=== PATIENT | male | born 1980 | race Caucasian/White ===

== ENCOUNTER 2019-12-29 12:22 | Observation (INO) | payer OTHER, SELFPAY ==
[2019-12-29] VITALS (20 sets, daily range): BP systolic 107–146; BP diastolic 49–107; PULSE 52–104; RESP 7–24; TEMP 36.4–38.2; O2SAT 96–100; BMI 23.7
--- NOTE | 2019-12-29 12:28 | DI.RAD.S_ITS ---
PROCEDURE: XR FOOT RT MIN 3V INDICATIONS: Boat propeller shaft hit foot TECHNIQUE: 3 views of the foot were acquired. COMPARISON: None. FINDINGS: Bones: There is a moderately displaced, comminuted fracture seen of the distal shaft of the 5th metatarsal. No intra-articular involvement can be seen. No additional fractures are detected. Soft tissues: Associated soft tissue injury can be seen. IMPRESSION: Comminuted, moderately displaced fracture of the distal shaft of the 5th metatarsal. Dictated by: Marcelino Amador M.D. on 12/29/2019 at 12:04 Approved by: Marcelino Amador M.D. on 12/29/2019 at 12:05
--- NOTE | 2019-12-29 12:47 | ED_ITS ---
HPI - Wound/Laceration <WHITNEY Griffin - Last Filed: 12/29/19 18:31> General Chief Complaint: Wound/Laceration Stated Complaint: Laceration on foot Time Seen by Provider: 12/29/19 12:28 Source: patient and EMS Mode of arrival: EMS Limitations: no limitations History of Present Illness HPI narrative: The patient is a 39-year-old male nonsmoker who denies pertinent medical history presents with a chief complaint of a laceration to his right foot. He was working in a propeller room, when he slipped and cut the bottom of his right foot on a bolt from the propeller shaft. He does not know when his last tetanus was. He states he can feel his whole foot, though the lateral aspect by his 5th toe feels ?funny. He arrives by EMS with a dressing of rags on his foot. He denies any pertinent medical history, though has had an Achilles repair and knee surgery. Does not take any medications every day last intake 12:00 which was dried mangoes. The patient states that he was in the propeller room, not in water. He was wearing shoes and this occurred through his shoes. Related Data Allergies Allergy/AdvReac Type Severity Reaction Status Date / Time No Known Drug Allergies Allergy Verified 12/29/19 12:29 Review of Systems <WHITNEY Griffin - Last Filed: 12/29/19 18:31> Review of Systems Narrative: GENERAL: Denies chills, fatigue, malaise, fever, sweats. HEENT: Denies sinus pain, ear pain, sore throat, difficulty swallowing, dizziness. RESPIRATORY: Denies dyspnea, cough, wheezing, hemoptysis, sputum. CARDIOVASCULAR: Denies chest pain, palpitations, orthopnea, edema, GASTROINTESTINAL: Denies nausea, vomiting, abdominal pain, diarrhea, constipation, melena. : Denies dysuria, frequency, incontinence, hematuria, urinary retention. MUSCULOSKELETAL: See HPI SKIN: See HPI NEUROLOGIC: Denies weakness, headache, numbness, change in speech, confusion, seizures, incoordination. PSYCHIATRIC: No concerning psychosocial issues. 12 point review of systems is negative except for those stated above Patient History <WHITNEY Griffin - Last Filed: 12/29/19 18:31> Surgical History (Updated 12/29/19 @ 18:23 by JAI Griffin) H/O Achilles tendon repair Social History household members: spouse Smoking Status: Never smoker alcohol intake: current Smoking Status: Unknown if ever smoked alcohol intake frequency: holidays/special occasions only Substance Use Type: marijuana Exam <JAI Griffin - Last Filed: 12/29/19 18:31> Narrative Exam Narrative: GENERAL: This is a well-nourished, well-developed patient, in appears slightly anxious HEAD: Atraumatic. Normocephalic. No temporal or scalp tenderness. EYES: Pupils equal round and reactive. Extraocular motions intact. No scleral icterus. No injection or drainage. ENT: Nose without bleeding, purulent drainage or septal hematoma. Wearing a mask Airway patent. NECK: Trachea midline. No JVD or lymphadenopathy. Supple, nontender, no meningeal signs. CARDIOVASCULAR: Regular rate and rhythm RESPIRATORY: Clear to auscultation. Breath sounds equal bilaterally. No wheezes, rales, or rhonchi. No cough. No increased respiratory effort. No accessory muscle use GASTROINTESTINAL: Abdomen soft, non-tender, nondistended. No hepato- splenomegaly, or palpable masses. No guarding. EXTREMITIES: Irregular jagged 8 cm laceration that is linear on plantar aspect of right foot. Positive right pedal pulses. Wiggling right toes. Laceration oozing blood, approximately 2 cm deep. Sensation intact all toes, though slightly reduced over 5th toe. Able to flex and extend ankle. Capillary refill all toes left foot less than 2 seconds. BACK: Nontender without deformity or crepitance. No flank tenderness. NEURO: AOx3. SKIN: See extremity exam Initial Vital Signs Initial Vital Signs: Vital Signs Temperature 98.4 F 12/29/19 12:25 Pulse Rate 86 12/29/19 12:25 Respiratory Rate 16 12/29/19 12:25 Blood Pressure 146/88 H 12/29/19 12:25 Pulse Oximetry 98 12/29/19 12:25 <Lisa Espinoza DO - Last Filed: 12/30/19 07:23> Initial Vital Signs Initial Vital Signs: Vital Signs Temperature 98.4 F 12/29/19 12:25 Pulse Rate 86 11/19/20 12:25 Respiratory Rate 16 12/29/19 12:25 Blood Pressure 146/88 H 12/29/19 12:25 Pulse Oximetry 98 12/29/19 12:25 Scores [facility] Last Filed: 12/29/19 18:31> GCS Seaview coma scale eye opening: Spontaneous Seaview coma scale verbal response: Orientated Seaview coma scale motor response: Obey commands Rose coma scale total score: 15 Course <WHITNEY Griffin - Last Filed: 12/29/19 18:31> Orders Ordered: Acetaminophen (Acetaminophen 325 Mg Tablet) 975 mg PO TID [facility] Last Admin: 12/30/19 05:18 Dose: 975 mg Documented by: Admin: 12/29/19 21:04 Dose: 975 mg Documented by: ARTIE Aspirin (Aspirin Ec 81 Mg Tablet) 81 mg PO BID [facility] Docusate Sodium (Docusate 100 Mg Capsule) 100 mg PO BID [facility] Last Admin: 12/29/19 21:04 Dose: 100 mg Documented by: ARTIE Hydromorphone HCl (Hydromorphone 0.5 Mg Inj) 0.2 mg IV Q1H PRN PRN Reason: Pain, Severe (7-10) Lactated Ringer's (Lactated Ringers) 1,000 mls @ 125 mls/hr IV CONT [facility] Last Infusion: 12/30/19 05:14 Dose: 0 mls/hr Documented by: Admin: 12/29/19 21:04 Dose: 125 mls/hr Documented by: ARTIE Cefazolin Sodium/Dextrose (Ancef) 2 gm in 100 mls @ 200 mls/hr IV Q8H [facility] Stop: 12/30/19 10:29 Last Infusion: 12/30/19 02:29 Dose: 0 mls/hr Documented by: Admin: 12/30/19 01:59 Dose: 200 mls/hr Documented by: NATY Sodium Chloride (Normal Saline 0.9%) 250 mls @ 21 mls/hr IV Q24H PRN PRN Reason: Flush Naloxone HCl (Naloxone 0.4 Mg/Ml Vial) 0.2 mg IV Q2MIN PRN PRN Reason: Opiate Reversal Ondansetron HCl (Ondansetron 4 Mg Odt) 4 mg PO Q4HR PRN PRN Reason: Nausea And Vomiting Ondansetron HCl (Ondansetron 4 Mg/2 Ml Inj) 4 mg IV Q4HR PRN PRN Reason: Nausea And Vomiting Oxycodone HCl (Oxycodone Ir 5 Mg Tablet) 5 mg PO Q3HR PRN PRN Reason: Pain, Moderate (4-6) Oxycodone HCl (Oxycodone Ir 10 Mg Tablet) 10 mg PO Q3HR PRN PRN Reason: Pain, Severe (7-10) Discontinued Medications Acetaminophen (Acetaminophen 325 Mg Tablet) 650 mg PO PACUNOW PRN PRN Reason: Pain, Mild (1-3) Bupivacaine HCl/Epinephrine Bitart (Bupivacaine 0.25% W/ Epi (Pf) 10 Ml Vial) 20 ml INJ NOW ONE Stop: 12/29/19 18:38 Last Admin: 12/29/19 18:38 Dose: 30 ml Documented by: CONCA Diphtheria/Tetanus/Acell Pertussis (Tet,Diph,Pertuss(Acell),Vac/Pf 0.5 Ml Syringe) 0.5 ml IM .ONCE ONE Stop: 12/29/19 12:29 Last Admin: 12/29/19 12:49 Dose: 0.5 ml Documented by: ARABELLA Fentanyl (Fentanyl 100 Mcg/2 Ml Inj) 0 mcg IV Q5M PRN PRN Reason: Pain, Moderate (4-6) Hydromorphone HCl (Hydromorphone 0.5 Mg Inj) 0.5 mg IV NOW ONE Stop: 12/29/19 13:20 Last Admin: 12/29/19 13:26 Dose: 0.5 mg Documented by: ARABELLA Hydromorphone HCl (Hydromorphone 0.5 Mg Inj) 0.5 mg IV NOW ONE Stop: 12/29/19 14:42 Last Admin: 12/29/19 14:49 Dose: 0.5 mg Documented by: ANA M Hydromorphone HCl (Hydromorphone 2 Mg Inj) 0 mg IV Q5MIN PRN PRN Reason: Pain, Mild (1-3) Potassium Chloride 40 meq/ (Sodium Chloride) 520 mls @ 130 mls/hr IV NOW ONE Stop: 12/29/19 18:17 Last Admin: 12/29/19 14:38 Dose: 130 mls/hr Documented by: ANA M Cosigned by: KBROTEM Cefazolin Sodium 2 gm/ Sodium (Chloride) 100 mls @ 200 mls/hr IV Q8H [facility] Stop: 12/29/19 22:31 Last Admin: 12/29/19 21:15 Dose: Not Given Documented by: ARTIE Cefazolin Sodium/Dextrose (Ancef) 2 gm in 100 mls @ 200 mls/hr IV Q8H [facility] Stop: 12/29/19 23:14 Last Infusion: 12/29/19 16:08 Dose: 0 mls/hr Documented by: ANA M Admin: 12/29/19 14:38 Dose: 200 mls/hr Documented by: ANA M Sodium Chloride (Normal Saline 0.9%) 1,000 mls @ 150 mls/hr IV CONT [facility] Last Admin: 12/29/19 16:17 Dose: 150 mls/hr Documented by: ANA M Lactated Ringer's (Lactated Ringers) 1,000 mls @ 42 mls/hr IV CONT [facility] Last Admin: 12/29/19 17:24 Dose: 42 mls/hr Documented by: SUJATA Cefazolin Sodium/Dextrose (Ancef) 2 gm in 100 mls @ 200 mls/hr IV NOW ONE Stop: 12/29/19 18:15 Last Infusion: 12/29/19 18:15 Dose: 0 mls/hr Documented by: Admin: 12/29/19 17:58 Dose: 200 mls/hr Documented by: SUSIE Morphine Sulfate (Morphine 4 Mg/Ml Inj) 4 mg IV NOW ONE Stop: 12/29/19 12:33 Last Admin: 12/29/19 12:50 Dose: 4 mg Documented by: ARABELLA Ondansetron HCl (Ondansetron 4 Mg/2 Ml Inj) 4 mg IV NOW PRN PRN Reason: Nausea And Vomiting Oxycodone HCl (Oxycodone Ir 5 Mg Tablet) 5 mg PO PACUNOW PRN PRN Reason: Mild or moderate pain Sodium Chloride (Sodium Chloride 0.9% 100 Ml) 150 ml IV NOW ONE Stop: 12/29/19 16:13 Last Admin: 12/29/19 16:16 Dose: Not Given Documented by: ANA M Vital Signs Vital signs: Vital Signs - 8 hr 12/29/19 12:25 12/29/19 13:37 12/29/19 14:00 Temperature 98.4 F Pulse Rate 86 63 52 L Respiratory Rate 16 23 21 Blood Pressure 146/88 H Pulse Oximetry 98 97 98 12/29/19 14:01 12/29/19 14:30 12/29/19 15:00 Temperature Pulse Rate 65 68 Respiratory Rate 15 24 Blood Pressure 107/53 L 113/62 110/55 L Pulse Oximetry 98 96 12/29/19 15:30 Temperature Pulse Rate 62 Respiratory Rate 22 Blood Pressure 118/65 Pulse Oximetry 99 <Lisa Espinoza, DO - Last Filed: 12/30/19 07:23> Orders Ordered: Acetaminophen (Acetaminophen 325 Mg Tablet) 975 mg PO TID [facility] Last Admin: 12/30/19 05:18 Dose: 975 mg Documented by: Admin: 12/29/19 21:04 Dose: 975 mg Documented by: ARTIE Aspirin (Aspirin Ec 81 Mg Tablet) 81 mg PO BID [facility] Docusate Sodium (Docusate 100 Mg Capsule) 100 mg PO BID [facility] Last Admin: 12/29/19 21:04 Dose: 100 mg Documented by: ARTIE Hydromorphone HCl (Hydromorphone 0.5 Mg Inj) 0.2 mg IV Q1H PRN PRN Reason: Pain, Severe (7-10) Lactated Ringer's (Lactated Ringers) 1,000 mls @ 125 mls/hr IV CONT [facility] Last Infusion: 12/30/19 05:14 Dose: 0 mls/hr Documented by: Admin: 12/29/19 21:04 Dose: 125 mls/hr Documented by: ARTIE Cefazolin Sodium/Dextrose (Ancef) 2 gm in 100 mls @ 200 mls/hr IV Q8H [facility] Stop: 12/30/19 10:29 Last Infusion: 12/30/19 02:29 Dose: 0 mls/hr Documented by: Admin: 12/30/19 01:59 Dose: 200 mls/hr Documented by: NATY Sodium Chloride (Normal Saline 0.9%) 250 mls @ 21 mls/hr IV Q24H PRN PRN Reason: Flush Naloxone HCl (Naloxone 0.4 Mg/Ml Vial) 0.2 mg IV Q2MIN PRN PRN Reason: Opiate Reversal Ondansetron HCl (Ondansetron 4 Mg Odt) 4 mg PO Q4HR PRN PRN Reason: Nausea And Vomiting Ondansetron HCl (Ondansetron 4 Mg/2 Ml Inj) 4 mg IV Q4HR PRN PRN Reason: Nausea And Vomiting Oxycodone HCl (Oxycodone Ir 5 Mg Tablet) 5 mg PO Q3HR PRN PRN Reason: Pain, Moderate (4-6) Oxycodone HCl (Oxycodone Ir 10 Mg Tablet) 10 mg PO Q3HR PRN PRN Reason: Pain, Severe (7-10) Discontinued Medications Acetaminophen (Acetaminophen 325 Mg Tablet) 650 mg PO PACUNOW PRN PRN Reason: Pain, Mild (1-3) Bupivacaine HCl/Epinephrine Bitart (Bupivacaine 0.25% W/ Epi (Pf) 10 Ml Vial) 20 ml INJ NOW ONE Stop: 12/29/19 18:38 Last Admin: 12/29/19 18:38 Dose: 30 ml Documented by: CONCA Diphtheria/Tetanus/Acell Pertussis (Tet,Diph,Pertuss(Acell),Vac/Pf 0.5 Ml Syringe) 0.5 ml IM .ONCE ONE Stop: 12/29/19 12:29 Last Admin: 12/29/19 12:49 Dose: 0.5 ml Documented by: ARABELLA Fentanyl (Fentanyl 100 Mcg/2 Ml Inj) 0 mcg IV Q5M PRN PRN Reason: Pain, Moderate (4-6) Hydromorphone HCl (Hydromorphone 0.5 Mg Inj) 0.5 mg IV NOW ONE Stop: 12/29/19 13:20 Last Admin: 12/29/19 13:26 Dose: 0.5 mg Documented by: ARABELLA Hydromorphone HCl (Hydromorphone 0.5 Mg Inj) 0.5 mg IV NOW ONE Stop: 12/29/19 14:42 Last Admin: 12/29/19 14:49 Dose: 0.5 mg Documented by: ANA M Hydromorphone HCl (Hydromorphone 2 Mg Inj) 0 mg IV Q5MIN PRN PRN Reason: Pain, Mild (1-3) Potassium Chloride 40 meq/ (Sodium Chloride) 520 mls @ 130 mls/hr IV NOW ONE Stop: 12/29/19 18:17 Last Admin: 12/29/19 14:38 Dose: 130 mls/hr Documented by: ANA M Cosigned by: UBALDO Cefazolin Sodium 2 gm/ Sodium (Chloride) 100 mls @ 200 mls/hr IV Q8H [facility] Stop: 12/29/19 22:31 Last Admin: 12/29/19 21:15 Dose: Not Given Documented by: ARTIE Cefazolin Sodium/Dextrose (Ancef) 2 gm in 100 mls @ 200 mls/hr IV Q8H [facility] Stop: 12/29/19 23:14 Last Infusion: 12/29/19 16:08 Dose: 0 mls/hr Documented by: ANA M Admin: 12/29/19 14:38 Dose: 200 mls/hr Documented by: ANA M Sodium Chloride (Normal Saline 0.9%) 1,000 mls @ 150 mls/hr IV CONT [facility] Last Admin: 12/29/19 16:17 Dose: 150 mls/hr Documented by: ANA M Lactated Ringer's (Lactated Ringers) 1,000 mls @ 42 mls/hr IV CONT [facility] Last Admin: 12/29/19 17:24 Dose: 42 mls/hr Documented by: SUJATA Cefazolin Sodium/Dextrose (Ancef) 2 gm in 100 mls @ 200 mls/hr IV NOW ONE Stop: 12/29/19 18:15 Last Infusion: 12/29/19 18:15 Dose: 0 mls/hr Documented by: Admin: 12/29/19 17:58 Dose: 200 mls/hr Documented by: SUSIE Morphine Sulfate (Morphine 4 Mg/Ml Inj) 4 mg IV NOW ONE Stop: 12/29/19 12:33 Last Admin: 12/29/19 12:50 Dose: 4 mg Documented by: ARABELLA Ondansetron HCl (Ondansetron 4 Mg/2 Ml Inj) 4 mg IV NOW PRN PRN Reason: Nausea And Vomiting Oxycodone HCl (Oxycodone Ir 5 Mg Tablet) 5 mg PO PACUNOW PRN PRN Reason: Mild or moderate pain Sodium Chloride (Sodium Chloride 0.9% 100 Ml) 150 ml IV NOW ONE Stop: 12/29/19 16:13 Last Admin: 12/29/19 16:16 Dose: Not Given Documented by: ANA M Vital Signs Vital signs: Vital Signs - 8 hr 12/29/19 12:25 12/29/19 13:37 12/29/19 14:00 Temperature 98.4 F Pulse Rate 86 63 52 L Respiratory Rate 16 23 21 Blood Pressure 146/88 H Pulse Oximetry 98 97 98 12/29/19 14:01 12/29/19 14:30 12/29/19 15:00 Temperature Pulse Rate 65 68 Respiratory Rate 15 24 Blood Pressure 107/53 L 113/62 110/55 L Pulse Oximetry 98 96 12/29/19 15:30 Temperature Pulse Rate 62 Respiratory Rate 22 Blood Pressure 118/65 Pulse Oximetry 99 MDM - Wound/Laceration <GUILLERMO Griffin- - Last Filed: 12/29/19 18:31> Lab Data Attestation: I reviewed the patient's lab results. Result diagrams: 12/29/19 12:43 12/29/19 12:43 Labs: Lab Results 12/29/19 12/29/19 12/29/19 Range/Units 12:43 12:43 12:43 WBC 6.6 (4.5-11.0) X10^3/uL RBC 5.15 (4.5-5.9) X10^6/uL Hgb 14.6 (13.5-17.5) g/dL Hct 43.5 (41-53) % MCV 84.5 (80-100) fL MCH 28.4 (26-34) PG MCHC 33.6 (30-36) % RDW 12.5 (11.6-14.8) % Plt Count 183 (150-400) X10^3/uL Neut % (Auto) 58.9 (50-75) % Lymph % (Auto) 31.1 (25-40) % [place] % (Auto) 7.0 (3-14) % Eos % (Auto) 2.4 (2-4) % Baso % (Auto) 0.6 (0-2) % Neut # (Auto) 3900 (9258-7675) /uL Lymph # (Auto) 2100 (3271-1879) /uL [place] # (Auto) 500 (0-900) /uL Eos # (Auto) 200 (0-450) /uL Baso # (Auto) 0 (0-100) /uL Sodium 138 (137-145) mmol/L Potassium 2.9 L (3.4-5.1) mmol/L Chloride 100 (98-107) mmol/L Carbon Dioxide 30 (22-32) mmol/L BUN 18 (9-20) mg/dL Creatinine 0.72 (0.66-1.25) mg/dL Estimated GFR > 60.0 (>60) mL/min BUN/Creatinine Ratio 25.0 H (6-22) Glucose 124 H (70-100) mg/dL Calcium 9.2 (8.4-10.2) mg/dL Total Bilirubin 0.6 (0.2-1.3) mg/dL AST 28 (17-59) IU/L ALT 22 (<50) IU/L Alkaline Phosphatase 89 (38-126) U/L Total Protein 7.6 (6.3-8.2) g/dL Albumin 4.7 (3.5-5.0) g/dL Globulin 2.9 (1.7-4.1) g/dL Albumin/Globulin Ratio 1.6 (1.0-2.8) COVID-19 PCR Negative (Negative) Imaging Data Extremity x-ray #1: Radiologist's Impression: [address] [place] [id number] ReportSigned Patient: Saritha Noriega#: [id number]: 1980Acct:[id number]/Sex: 39 / MDate of Service: 12/29/19Loc: EDAccession Number: [id number] Procedure: XR foot RT min 3V Ordering Provider: Lala Funes- PROCEDURE: XR FOOT RT MIN 3V INDICATIONS: Boat propeller shaft hit foot TECHNIQUE: 3 views of the foot were acquired. COMPARISON: None. FINDINGS: Bones: There is a moderately displaced, comminuted fracture seen of the distal shaft of the 5th metatarsal. No intra-articular involvement can be seen. No additional fractures are detected. Soft tissues: Associated soft tissue injury can be seen. IMPRESSION: Comminuted, moderately displaced fracture of the distal shaft of the 5th metatarsal. Dictated by: Marcelino Amador M.D. on 12/29/2019 at 12:04 Approved by: Marcelino Amador M.D. on 12/29/2019 at 12:05 [facility] Narrative Medical decision making narrative: The patient is a 39-year-old male who presents with a chief complaint of a propeller staffed injury to the base of his right foot. His tetanus was updated. X-rays were taken he was found to have an open fracture of his 5th metatarsal. He is neurovascular intact throughout stay in the ER, though slight the decreased sensation on lateral aspect. Given his complicated laceration and open fracture, I spoke with Dr. Borrero from [facility] who elected to take the patient to the operating room. Last oral intake was at noon, this patient went to surgery at 6:00 p.m.. He was given Ancef in the emergency department as this injury was not caused and water. He was noted to be hypokalemic, He was given Potassium rider in the emergency department. Coronavirus is negative. Patient received Dilaudid in the ER for pain and remain NPO. Patient went to operating room for surgery at approximately 6:00 p.m.. <Lisa Espinoza DO - Last Filed: 12/30/19 07:23> Lab Data Labs: Lab Results 12/29/19 12/29/19 12/29/19 Range/Units 12:43 12:43 12:43 WBC 6.6 (4.5-11.0) X10^3/uL RBC 5.15 (4.5-5.9) X10^6/uL Hgb 14.6 (13.5-17.5) g/dL Hct 43.5 (41-53) % MCV 84.5 (80-100) fL MCH 28.4 (26-34) PG MCHC 33.6 (30-36) % RDW 12.5 (11.6-14.8) % Plt Count 183 (150-400) X10^3/uL Neut % (Auto) 58.9 (50-75) % Lymph % (Auto) 31.1 (25-40) % [place] % (Auto) 7.0 (3-14) % Eos % (Auto) 2.4 (2-4) % Baso % (Auto) 0.6 (0-2) % Neut # (Auto) 3900 (3958-7422) /uL Lymph # (Auto) 2100 (5005-9576) /uL [place] # (Auto) 500 (0-900) /uL Eos # (Auto) 200 (0-450) /uL Baso # (Auto) 0 (0-100) /uL Sodium 138 (137-145) mmol/L Potassium 2.9 L (3.4-5.1) mmol/L Chloride 100 (98-107) mmol/L Carbon Dioxide 30 (22-32) mmol/L BUN 18 (9-20) mg/dL Creatinine 0.72 (0.66-1.25) mg/dL Estimated GFR > 60.0 (>60) mL/min BUN/Creatinine Ratio 25.0 H (6-22) Glucose 124 H (70-100) mg/dL Calcium 9.2 (8.4-10.2) mg/dL Total Bilirubin 0.6 (0.2-1.3) mg/dL AST 28 (17-59) IU/L ALT 22 (<50) IU/L Alkaline Phosphatase 89 (38-126) U/L Total Protein 7.6 (6.3-8.2) g/dL Albumin 4.7 (3.5-5.0) g/dL Globulin 2.9 (1.7-4.1) g/dL Albumin/Globulin Ratio 1.6 (1.0-2.8) COVID-19 PCR Negative (Negative) Discharge Plan Departure Patient Disposition: Admitted as Observation Clinical Impression: Open fracture, Laceration Admit Date/Time: 12/29/19 15:46 Admit Provider: Kassidy James <Lisa Espinoza DO - Last Filed: 12/30/19 07:23> Cosign ED Attending Zabrina Attestation: I was immediately available in the department for consultation. Documentation has been reviewed. I agree with assessment and plan.
[2019-12-29] MEDS: TET,DIPH,PERTUSS(ACELL),VAC/PF 0.5 ML SYRINGE IM (12:49)
[2019-12-29] MEDS: MORPHINE 4 MG/ML INJ IV (12:50)
--- NOTE | 2019-12-29 13:02 | PC.NURSE ---
patient has been NPO since 1200. He is not DM and not beta blocked
[2019-12-29 13:05] LABS: Alanine Aminotransferase 22 IU/L (<50); Albumin 4.7 g/dL (3.5-5.0); Albumin Globulin Ratio 1.6 (1.0-2.8); Alkaline Phosphatase 89 U/L (38-126); Aspartate Aminotransferase 28 IU/L (17-59); Bilirubin Total 0.6 mg/dL (0.2-1.3); Blood Urea Nitrogen 18 mg/dL (9-20); COVID19 -Nasal RAPID Negative (Negative); Calcium 9.2 mg/dL (8.4-10.2); Carbon Dioxide 30 mmol/L (22-32); Chloride 100 mmol/L (98-107); Estimated Glomerular Filt Rate > 60.0 mL/min (>60); Globulin 2.9 g/dL (1.7-4.1); Glucose 124 mg/dL (70-100); HEMOLYSIS 25 (0-50); Potassium 2.9 mmol/L (3.4-5.1); Sodium 138 mmol/L (137-145); Total Protein 7.6 g/dL (6.3-8.2)
[2019-12-29 13:08] LABS: Add Manual Diff / Slide Review NO; Basophils Absolute Auto 0 /uL (0-100); Basophils Percent Auto 0.6 % (0-2); Eosinophils Absolute Auto 200 /uL (0-450); Eosinophils Percent Auto 2.4 % (2-4); Hematocrit 43.5 % (41-53); Hemoglobin 14.6 g/dL (13.5-17.5); Lymphocytes Absolute Auto 2100 /uL (1100-4500); Lymphocytes Percent Auto 31.1 % (25-40); Mean Corpuscular HGB Conc 33.6 % (30-36); Mean Corpuscular Hemoglobin 28.4 PG (26-34); Mean Corpuscular Volume 84.5 fL (80-100); Monocytes Absolute Auto 500 /uL (0-900); Neutrophils Absolute Auto 3900 /uL (1500-7000); Neutrophils Percent Auto 58.9 % (50-75); Platelet Count 183 X10^3/uL (150-400); Red Blood Cell Count 5.15 X10^6/uL (4.5-5.9); Red Cell Distribution Width 12.5 % (11.6-14.8); White Blood Cell Count 6.6 X10^3/uL (4.5-11.0)
[2019-12-29] MEDS: HYDROMORPHONE 0.5 MG INJ IV ×2 (13:26→14:49)
[2019-12-29] MEDS: POTASSIUM CHLORIDE 40 MEQ in SODIUM CHLORIDE 0.9% 500 ML 130 ML IV (14:38)
[2019-12-29] MEDS: CEFAZOLIN 2 GM/100 ML FROZ.PIGGY IV ×2 (14:38→17:58)
[2019-12-29] MEDS: SODIUM CHLORIDE 0.9% 1,000 ML 150 ML IV (16:17)
--- NOTE | 2019-12-29 17:10 | PM.HP.1 ---
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 It went through his shoe and through shoe off and lacerated the plantar lateral surface of his right foot. He had immediate bleeding and pain at the time. He presented [facility]. Tetanus shot was updated. He was found to have a approximately 8 cm plantar laceration and a 5th metatarsal fracture. He has a history of a right Achilles tendon repair on the same foot over 10 years ago. Denies any medication allergies. No daily medicines. He received Ancef in the emergency room. Patient History Family & Social History Safety & Behavioral: Feels Safe in Current Yes Environment Been Physically Hurt or No Threatened By a Person Tobacco & Substance use: Smoking Status Unknown if ever smoked alcohol intake frequency holiday/special occasion Substance Use Type marijuana Meds Home Medications and Allergies Allergies Allergy/AdvReac Type Severity Reaction Status Date / Time No Known Drug Allergies Allergy Verified 12/29/19 12:29 Review of Systems Review of Systems Narrative: Review systems otherwise negative, 10 point review of systems. Does have a history of upper gastric endoscopy twice for surveillance. Father has history of esophageal cancer. Patient states both of his scopes have been negative ROS: Yes All systems reviewed with the patient and are negative except as otherwise documented Constitutional Comments: Denies fevers chills nausea vomiting Respiratory Comments: Denies cough denies shortness of breath denies wheezing Musculoskeletal Comments: Right foot pain for HPI Exam Vital Signs (past 8 hours): - 12/29/19 12:25 12/29/19 13:37 12/29/19 14:00 Temperature 98.4 F Pulse Rate 86 63 52 L Respiratory Rate 16 23 21 Blood Pressure 146/88 H Pulse Oximetry 98 97 98 12/29/19 14:01 12/29/19 14:30 12/29/19 15:00 Temperature Pulse Rate 65 68 Respiratory Rate 15 24 Blood Pressure 107/53 L 113/62 110/55 L Pulse Oximetry 98 96 12/29/19 15:30 12/29/19 16:00 12/29/19 16:30 Temperature Pulse Rate 62 61 87 Respiratory Rate 22 12 20 Blood Pressure 118/65 118/68 146/75 H Pulse Oximetry 99 98 100 12/29/19 16:56 Temperature 100.8 F H Pulse Rate 84 Respiratory Rate 22 Blood Pressure 143/77 H Pulse Oximetry 99 Oxygen Delivery Method Room Air Narrative Exam Narrative: Alert oriented male no acute distress appears stated age HEENT normocephalic atraumatic Respiratory exam unlabored on room air, lungs clear to auscultation bilaterally CV exam regular rate and rhythm Musculoskeletal exam: Full range of motion upper extremities. Right lower extremity has a dressing around the forefoot and midfoot. Is able to wiggle toes. Sensation moderately dismissed laterally over the 5th toe otherwise intact. Demonstrates dorsiflexion plantar flexion of the ankle. Achilles intact. Calf is soft. Brisk capillary refill Objective Labs Result Diagrams: 12/29/19 12:43 12/29/19 12:43 Labs: Laboratory Results - last 24 hr 12/29/19 12/29/19 12/29/19 12:43 12:43 12:43 WBC 6.6 RBC 5.15 Hgb 14.6 Hct 43.5 MCV 84.5 MCH 28.4 MCHC 33.6 RDW 12.5 Plt Count 183 Neut % (Auto) 58.9 Lymph % (Auto) 31.1 Jenkins % (Auto) 7.0 Eos % (Auto) 2.4 Baso % (Auto) 0.6 Neut # (Auto) 3900 Lymph # (Auto) 2100 Jenkins # (Auto) 500 Eos # (Auto) 200 Baso # (Auto) 0 Sodium 138 Potassium 2.9 L Chloride 100 Carbon Dioxide 30 BUN 18 Creatinine 0.72 Estimated GFR > 60.0 BUN/Creatinine Ratio 25.0 H Glucose 124 H Calcium 9.2 Total Bilirubin 0.6 AST 28 ALT 22 Alkaline Phosphatase 89 Total Protein 7.6 Albumin 4.7 Globulin 2.9 Albumin/Globulin Ratio 1.6 COVID-19 PCR Negative Assessment & Plan Assessment and plan (1) Open fracture: Problem details: Patient has an open fracture of his right 5th metatarsal neck. At this was sustained an industrial injury. The patient received tetanus in the ER. He received antibiotics in the ER. He has been indicated for formal operative irrigation and debridement of his open fracture and possible fixation. The risks and benefits of the procedure have been discussed with the patient even opportunity to ask questions. The risks of surgery include but are not limited to infection, malunion, nonunion, persistence of pain, damage to nerves and blood vessels, posttraumatic arthritis, DVT, PE, cardiopulmonary complications and . The patient expressed a thorough understanding of the risks and benefits of surgery and has elected to proceed. Consent was signed. He is indicated for observation admission to the hospital to receive postoperative antibiotics for his open fracture after surgical fixation. Will be discharged home in the morning after receiving antibiotics. Follow-up in 2 weeks for suture removal. If placed K-wire will stay in approximately 6 weeks. He will be heel weight-bearing in the postoperative shoe. Above for the 1st 2 weeks will minimize weight-bearing and utilize crutches to aid with plantar wound healing. Status: Acute (2) Laceration: Problem details: 8 cm complex laceration, deep plantar foot communicating with open 5th metatarsal fracture. Requiring operative debridement exploration and fixation of structures as indicated. Discussed with depth and location of laceration may have injured flexor tendons will evaluate these intraoperatively. Patient understands and agrees with the plan Status: Acute Quality VTE Deep Vein Thrombosis/Pulmonary Embolism Present on Admission: No
[2019-12-29] MEDS: LACTATED RINGERS 1,000 ML 42 ML IV (17:24)
--- NOTE | 2019-12-29 17:27 | P.OP_ITS ---
Operative Date/Time/Diagnoses Date of procedure: 12/29/19 Pre-op diagnosis: 1. Open fracture right 5th metatarsal T14.8xxa 2. Complex laceration plantar foot right, 8 cm Post-op diagnosis: same Procedure & Clinicians Procedure: 1. Open reduction internal fixation open right 5th metatarsal fracture CPT 38874 2. Irrigation debridement site of an open fracture cpt 60842 3. 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 During this his shoe was ripped off and he sustained a open 5th metatarsal fracture as well as a large plantar laceration approximately 8 cm. He was i ndicated for formal operative debridement and exploration of his deep laceration and open reduction internal fixation of the open fracture. Received antibiotic in the ER and a tetanus update. The risks and benefits of the procedure have been discussed with the patient even opportunity to ask questions. The risks of surgery include but are not limited to infection, malunion, nonunion, persistenc e of pain, damage to nerves and blood vessels, posttraumatic arthritis, DVT, PE, cardiopulmonary complications and . The patient expressed a thorough understanding of the risks and benefits of surgery and has elected to proceed. Consent was signed in the office today. Surgeon: Ksasidy James Click Yes if Unassisted: Yes Anesthesia Type: General and Local Operative Notes Findings: Complex deep plantar foot laceration measuring 10 cm and open c omminuted 5th metatarsal neck fracture with approximately 4 mm of displacement and shortening Closure Type: primary Specimen(s): none sent Prosthetic devices, grafts, tissues, transplants, or devices: 062 K wire x2 Estimated Blood Loss (mL): 5 Blood products transfused: none Tourniquet time (min): 40 Procedure in detail: Patient was seen in the preoperative room the site of surgery was marked informed consent confirmed. The patient was brought to the operating by the anesthesia team positioned supine on the OR table. Bony prominences well padded. SCD on the contralateral lower extremity. An ipsilateral thigh bump was placed. Well-padded thigh tourniquet was placed. General anesthesia was administered. Patient's right lower extremities prepped and draped in the standard sterile fashion. Formal time-out procedure was performed confirming the patient's side and site of surgery and administration of appropriate preoperative antibiotic. This was an open wound was prepped with Betadine. Esmarch was used for exsanguination and the tourniquet was elevated to 250 mm of mercury and stayed there for approximately 40 minutes. Attention was 1st turned to the plantar laceration. This was a 10 cm plantar laceration full thickness deep down to bone. Wound was opened and explored. Distally the flexor tendon for the small toe was palpated and congruency. The wound was thoroughly irrigated with 3 L of saline using cysto tubing. And the edges freshened and cleaned of all devitalized skin subcutaneous tissue muscle and fascia. The open fracture was also irrigated and the fracture bone cleansed and debrided. Following this gloves were changed. And attention was turned to the comminuted oblique metatarsal neck fracture. This was reduced with manual manipulation. And a 062 K-wire was placed across. Note the metatarsal neck fracture was quite unstable and did tend to shorten and flex. Therefore of this was repositioned and secured with a 2x062 K-wires for increased stability. Alignment was appropriate on AP and lateral imaging the wires were then cut and bent. The laceration was closed in a layered fashion with 2-0 PDS and 2-0 nylon and 3-0 nylon in the skin. 30 cc of 0.25% Marcaine with epinephrine were infiltrated for local anesthetic. The tourniquet was released. Hemostasis was achieved. A well-padded dressing was placed with Xeroform gauze Webril and ABD pad and Miguel wrap. Patient was placed into a postoperative shoe. Drapes removed. He was woken from anesthesia and taken to the postoperative unit in good condition. All counts were correct. Complications: none Post-operative Condition: stable Disposition: observation Plan for aftercare: Postop admission forIV antibiotics for open fracture. Once finished with standard postoperative doses plan for discharge home tomorrow morning after physical therapy with crutch training. Follow-up in 2 weeks in clinic. K-wire will stay for 6 weeks. He will weight-bearing postop shoe with crutch assistance.
[2019-12-29] MEDS: BUPIVACAINE 0.25% W/ EPI (PF) 10 ML VIAL 20 ML INJ (18:38)
[2019-12-29] MEDS: LACTATED RINGERS 1,000 ML 125 ML IV (21:04)
[2019-12-29] MEDS: ACETAMINOPHEN 325 MG TABLET 975 MG PO (21:04)
[2019-12-29] MEDS: DOCUSATE 100 MG CAPSULE PO (21:04)
[2019-12-30 00:15] VITALS: BP 127/64; PULSE 78; RESP 16; TEMP 37.1; O2SAT 97
[2019-12-30] MEDS: CEFAZOLIN 2 GM/100 ML FROZ.PIGGY IV ×2 (01:59→10:32)
[2019-12-30 04:48] VITALS: BP 114/66; PULSE 65; RESP 16; TEMP 36.4; O2SAT 98
[2019-12-30] MEDS: ACETAMINOPHEN 325 MG TABLET 975 MG PO (05:18)
--- NOTE | 2019-12-30 06:01 | PC.NURSE ---
Pt is A and O x 4, VSS. Pt rates R foot pain 4/10 and was given 975 mg APAP at 0530. He tolerated his ABOs and IVF well and voiding qs clear yellow. LS clear and HRR.
[2019-12-30 07:00] VITALS: BP 115/71; PULSE 76; RESP 15; TEMP 37.1; O2SAT 97
--- NOTE | 2019-12-30 07:58 | P.DS_ITS ---
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 It went through his shoe and through shoe off and lacerated the plantar lateral surface of his right foot. He had immediate bleeding and pain at the time. He presented [facility]. Tetanus shot was updated. He was found to have a approximately 8 cm plantar laceration and a 5th metatarsal fracture. He has a history of a right Achilles tendon repair on the same foot over 10 years ago. Denies any medication allergies. No daily medicines. He received Ancef in the emergency room. Was also found Have a low potassium in the ER and received infusion for electrolyte correction. Discharge Providers Provider Date of admission: 12/29/19 15:46 Discharge Date: 12/30/19 Primary care physician: Cy Alejandro MD Consults: 12/29/19 20:21 Consult to Physical Therapy Evaluate & Treat Comment: crutches and crutch training heel weightbearing ok Physician Instructions: Evaluate and Treat Consult to Respiratory Therapy Evaluate & Treat Comment: Physician Instructions: Evaluate and treat Discharge provider: Kassidy James MD Summary Hospital Course Discharge Diagnosis: Right open 5th metatarsal fracture, 10 cm plantar foot traumatic laceration, complex Hypokalemia Hospital Course: Patient was evaluated in the emergency room for his traumatic laceration plantar foot approximately 10 cm and open 5th metatarsal fracture. Received antibiotics the ER and tetanus update. Was taken to the operating room for formal operative debridement and ORIF of his open 5th metatarsal fracture. He was admitted to the floor for a standard treatment open fracture with postoperative IV antibiotics and pain control. Same was controlled overnight on oral medications. Patient was tolerating a p.o. diet. He was appropriate for discharge home following completion of his 2nd back IV antibiotics in the morning and crutch training with physical therapy. Status at Discharge Cognitive/behavioral status at discharge: oriented Functional status at discharge: uses cane/walker (Crutches) Overall status at discharge: patient is progressing back to baseline Time Spent with Patient Time spent: Less than 30 minutes Time spent discussing smoking cessation with patient: 3 to 10 minutes Exam Vital Signs (past 8 hours): - 12/30/19 00:15 12/30/19 04:48 Temperature 98.8 F 97.5 F L Pulse Rate 78 65 Respiratory Rate 16 16 Blood Pressure 127/64 114/66 Pulse Oximetry 97 98 Oxygen Delivery Method Room Air Oxygen Flow Rate 0 Narrative Exam Narrative: Alert and oriented no acute distress Normocephalic atraumatic Lungs clear to auscultation bilaterally. No use of accessory muscles Regular rate and rhythm Right lower extremity with the postoperative shoe and dressings in place. Pins intact with caps in place. Toes pink and well perfused. Able to wiggle toes. Demonstrates active dorsiflexion plantar flexion of the foot. Calf is soft. Grossly neurovascularly intact. Objective Labs Result Diagrams: 12/29/19 12:43 12/29/19 12:43 Labs: Laboratory Results - last 24 hr 12/29/19 12/29/19 12/29/19 12:43 12:43 12:43 WBC 6.6 RBC 5.15 Hgb 14.6 Hct 43.5 MCV 84.5 MCH 28.4 MCHC 33.6 RDW 12.5 Plt Count 183 Neut % (Auto) 58.9 Lymph % (Auto) 31.1 Panola % (Auto) 7.0 Eos % (Auto) 2.4 Baso % (Auto) 0.6 Neut # (Auto) 3900 Lymph # (Auto) 2100 [place] # (Auto) 500 Eos # (Auto) 200 Baso # (Auto) 0 Sodium 138 Potassium 2.9 L Chloride 100 Carbon Dioxide 30 BUN 18 Creatinine 0.72 Estimated GFR > 60.0 BUN/Creatinine Ratio 25.0 H Glucose 124 H Calcium 9.2 Total Bilirubin 0.6 AST 28 ALT 22 Alkaline Phosphatase 89 Total Protein 7.6 Albumin 4.7 Globulin 2.9 Albumin/Globulin Ratio 1.6 COVID-19 PCR Negative Discharge Assessment & Plan Assessment and Plan Assessment: 1. Open fracture right 5th metatarsal status postoperative I and D 23 hours of IV antibiotics and ORIF 2. 10 cm complex plantar laceration over open fracture status post formal operative debridement, IV antibiotics closure. 3. Hypokalemia status post electrolyte correction administration Plan of Treatment: 1. Heel down weight-bearing in postop shoe with use of crutches. Will rest and elevate most the next 2 weeks until wound healing on his plantar foot. K-wires will stay in place x6 weeks. Follow-up in 2 weeks for wound check. Left 5 days Keflex at discharge and Catawba for pain control. Aspirin 81 mg b.i.d. DVT prophylaxis. Once of an ambulatory may discontinue this. 2. Hypokalemia status post correction with electrolyte administration. Discharge Plan Discharge Plan Patient Disposition: Home Provider Discharge Comment: After therapy provided crutches and crutch training and after 10 a.m. dose Ancef Discharge orders & Medications Prescriptions: New hydrocodone-acetaminophen [Catawba] 5-325 mg tablet 1 tab PO Q4-6H PRN (Reason: pain) Qty: 30 RF: 0 cephalexin [Keflex] 500 mg capsule 500 mg PO QID Qty: 20 RF: 0 Follow up/Referrals: Kassidy James MD [Physician] - Cy Alejandro MD [Primary Care Provider] - Diet/Activity/Treatments Diet: Diet as Tolerated Activity: Heel weight-bearing in postoperative shoe and crutches. Elevate as needed Skin/Wound/Dressing Care Report to your healthcare provider any signs of infection, such as:: chills, fever, night sweats, increased pain, unusual drainage and unusual redness Dressing: Keep dressing clean dry and intact. May overwrap or change if saturated otherwise leave intact until 1st postoperative appointment. May take postop shoe off in bed but be careful to protect pinned Other wound treatment: At-Home Instructions - Dr. James Surgery: Laceration and open reduction internal fixation open right 5th metatarsal fracture Cast/Splint/Dressing Care Instructions 1) Keep cast/dressing clean and dry. 2) May bathe - but cast/dressing must remain dry. 3) Should the cast become wet, you need to come into emergency department or call your physician's clinic immediately for cast removal and replacement. Moisture can cause skin breakdown and lead to infection if left untreated. 4) Do not stick any sharp object down the cast to itch, as this can cause scrapes/cuts/punctures which can lead to infection. 6) Observe for increasing pain in the extremity with the cast, finger/toe-tips turning blue/purple, or numbness and tingling in your toes/fingers. Should any of these symptoms arise, you need to be seen immediately for evaluation of swelling and increasing compartment pressures within your affected extremity. 7) Keep your affected extremity elevated - Toes Above your Nose? - This is winters in the first two weeks after surgery to minimize swelling. 8) You may ice your extremity, being careful to prevent melting ice from saturating into the splint/cast. Activity No driving while on narcotic pain medication. Do not get your dressing/cast/splint wet! You must remain non-weight bearing/or heel and down in the postop shoe on your operative extremity. Use crutches or a walker for ambulation. No driving until you are otherwise instructed by your physician. This will be addressed at your first follow-up appointment. Discharge Pain Medications You will be given a prescription for pain medication. You should start taking this the same day after your surgery. Wean off as tolerated. Do not wait to take the pain medication until the pain is severe, as it will be difficult to catch up once this occurs. The pain medication usually reaches its full effect ~1 hour after ingesting. If you have been sent home on Colace, this medication should be taken until you are off all narcotic (i.e. Vicodin, Percocet, Oxycodone, etc) pain medications, to prevent constipation. You may also obtain this or another stool softener over the counter to prevent or alleviate constipation. Percocet or Vicodin have Tylenol in their ingredient lists. You must be careful not to exceed 3,000mg (3 grams) of Tylenol, from all sources, within a single 24-hr period. This means that you may not take more than 10 pills within a 24- hr period. Do NOT take Regular or Extra Strength Tylenol when taking your Percocet or Vicodin medications. -IF you have been given a Toradol/ketorolac prescription, this is a very strong anti-inflammatory. Do not take gwvw-ffi-icowfcp anti-inflammatories (ibuprofen, Aleve, Advil, Motrin) while taking the Toradol/ketorolac. Once you are finished with this prescription, then you can resume msca-sat-juhlgvd anti- inflammatories. You can still take your narcotic pain medication and Tylenol while taking the Toradol/ketorolac. -Some common side effects of the narcotic pain medications (Percocet, Oxycodone, Vicodin, etc.) include nausea and itching. Benadryl is a great over the counter medication that helps calm your stomach, decreases your anxiety levels, and minimizes the itching. You can easily purchase this at your local pharmacy as an qqyy-xfj-vytkerp medication. Please abide by the instructions as printed on the bottle. If your nausea persists, make sure to take small amounts of crackers or other menagerie caretaker foods. Follow-Up/Emergency Contacts Please call for an appointment in either [place] or [place], if one has not been scheduled. Follow up 2 weeks after surgery. [phone] Contact the office if you have any of the following: ? Painful swelling or numbness ? Unrelenting pain ? Fever (over 101?- it is normal to have a low grade fever for the first day or two following surgery) or chills ? Redness around the incisions ? Color changes ? Continuous bleeding or drainage from the incision (a small amount is expected) ? Excessive nausea or vomiting ? Difficulty breathing If you have an emergency that requires immediate attention, proceed to the nearest emergency room. Blood Clot Prophylaxis You will need to complete a total 2-week (14 days) course of Aspirin (81 mg twice daily) after surgery, to minimize the risk of blood clots following surgery. You may alternatively purchase or use cush-urd-wcykulh generic equivalent Aspirin. If you already have ?baby? Aspirin (81mg) at home, you can take 2 ?baby? Aspirin. Pain Medications: It is the policy of [facility] that narcotic medications will only be refilled during office hours. Additionally, due to the alarming rate of narcotic pain medication abuse/dependence, it has become necessary for physician practices to closely manage patient use of prescription narcotic pain relievers, such as Vicodin (Catawba), Percocet, and Oxycodone products. Narcotic pain management in the postoperative period may not exceed 6 weeks. If narcotic pain management is required beyond 90 days, then a referral to a Chronic Pain Specialist will be made. If a request for a medication prescription has been made, the physician must review your chart prior to authorizing the request. Please be patient with office staff. If you call during patient hours, your call may not be returned until the end of the day. A visit will be required before a narcotic prescription can be issued. Dr. Kassidy Mcclellandcortes [address] [place] [address] [email or web address] Discharge Data Primary Care Provider: Cy Alejandro Attending Provider: Kassidy James VTE Deep Vein Thrombosis/Pulmonary Embolism Present on Admission: No
--- NOTE | 2019-12-30 08:24 | CM.DANOTE ---
Addendum entered by Roseann Dickson LPN 12/30/19 08:34: Met with pt and introduced self and role. Pt has therapeutic shoe on L foot. He confirms his understanding of the plan prior to d/c for today. Says he used crutches once in past but was 10 years ago. He will need crutches at d/c/will consult with PT re this and assist prn with order for same. PCP: confirmed as Cy Alejandro. Pt says he plans to followup with Dr. James in clinic after d/c. Pt lives with his in [place] and says she will pick him up when he is ready for d/c later today. Original Note: Discharge Planning/Care Management DCP: assessment: case received, EMR reviewed, dc to home order noted: with instructions for d/c after second dose of IV antibiotics today and work with PT on crutch training. 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 Payer: [facility] Dr. James took him to surgery late yesterday to repair open fracture: surgical debridement and ORIF. P: discuss with PT in [place] and meet with pt to assist with any d/c issues/options that may arise. CM Discharge Assessment Start: 12/30/19 08:22 Freq: Status: Active Protocol: Document 12/30/19 08:24 ITV (Rec: 12/30/19 08:24 ITV [id number]) Discharge Planning Assessment Advance Directives? No History Provided By Medical Record Has Patient been admitted in last 30 No days? Prior Living Arrangements House Household Members spouse Independent with ADL's Yes Is patient alert and oriented? Yes Review Status In Process
[2019-12-30] MEDS: DOCUSATE 100 MG CAPSULE PO (08:32)
[2019-12-30] MEDS: OXYCODONE IR 5 MG TABLET PO (08:32)
[2019-12-30] MEDS: ASPIRIN EC 81 MG TABLET PO (08:32)
--- NOTE | 2019-12-30 09:30 | PT.IIE ---
Current Diagnoses Other injury of unspecified body region, initial encounter (12/29/19) Surgery Performed Operation Date: 12/29/19 18:00 Actual Procedures p ORIF Metatarsal Fracture(Right) - Kassidy James MD Surgical History (Last Updated 12/29/19 @ 18:23 by [facility]) H/O Achilles tendon repair Physical Therapy Inpatient Evaluation/Re-Eval M1 PT/OT-IP Prior Functional Status Start: 12/30/19 12:45 Freq: NEEDED Status: Active Protocol: Document 12/30/19 09:30 AB (Rec: 12/30/19 13:13 AB [id number]) Medical Review Prior Functional Status Medical History Reviewed Yes Communication able to make needs known Mobility and Gait pt stated that he is independent with all mobilities and ambulation without AD Social History Household Members spouse Living Arrangements House Number of Floors (Floors) Two Floors Number of Stairs To Enter/Railing? 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 fx s/p ORIF; difficulty in walking Onset Date 12/29/19 Precautions Brace post-op shoe RLE; RLE on soft cast Weight Bearing Status Weight Bearing Status Touch Down Weight Bearing Allowed Weight Bearing Amount (enter % TTWB on RLE but also MD put in or #) (%) an order : pt is ok to weight bear on his heels M3 PT-IP Subjective Start: 12/30/19 12:45 Freq: NEEDED Status: Active Protocol: Document 12/30/19 09:30 AB (Rec: 12/30/19 13:13 AB [id number]) Subjective Physical Therapy Visit Type Type Initial Evaluation Visit Start Time 09:30 Visit Stop Time 10:01 Total Visit Minutes 31 Number of STUDENT DEAN Visits 0 Physical Therapy Visit Comments Patient Comments pt is agreeable to do PT Therapy Pain Assessment Pain When Pain Assessed During Mobility Pain Present Pain Present Pain Reported Location right foot Intensity 5 Scale Used Numeric (0 - 10) Pain Management Techniques Re-positioning,Timing of Activity with Medications M4 PT-IP Mobility and Gait Start: 12/30/19 12:45 Freq: NEEDED Status: Active Protocol: Document 12/30/19 09:30 AB (Rec: 12/30/19 13:13 AB [id number]) PT-Bed Mobility Assessment Supine to Sit Supine to Sit Independent Scooting Scooting to Edge of Bed Independent PT-Transfer Assessment Sit to and From Stand Sit to and from Stand Standby Assistance,Use of Upper Extremities Equipment Transfer Assistive Device Gait Belt,Axillary Crutches Orthotic/Prosthetic Devices or Brace: Yes Transfers Transfer Destination Bed Transfer Technique ambulated using crutches Transfer Ability Level of Assist Standby Assistance,Contact Guard Assistance,1 Person Assistance,Use of Upper Extremities Comments Mobility Comments completed supine to sit independent. crutch training conducted. educated pt on how to use crutches for sit<> stand and ambulation. completed sit to stand using crutches SBA. educated on safety and weight bearing restriction on LLE. instucted the least weight possible on LLE or no weight if pt is not sure and if needed to put weight, can only put weight on heel of LLE. pt completed ambulation in room using crutches initially with CGA as pt can be impulsive. educated on safety and slowing down and completed more ambulation in the hallway ~ 150 ft SBA. pt able to maintain weight bearing restriction and tend to do NWB and if needed only did minimal weight on heel for ~ 1sec. educated pt on how to do stair climbing training using crutches abd 1 rail and completed SBA. assisted pt back to his room. ambulated using crutches to his chair. positioned on chair. call light and table placed within reach. pt without any further concerns. Gait Assessment Gait Gait Assistance Required: Standby Assistance,Contact Guard Assist Distance (Feet) 150 Able to Maintain Weight Bearing Status Yes During Gait Assistive Devices Assistive Device Gait Belt,Axillary Crutches Orthotic/Prosthetic Devices or Brace: Yes Factors Limiting Gait Function Factors Limiting Gait Function Decreased Activity Tolerance, Decreased Strength,Limited Range of Motion,Pain,Poor Balance,Poor Safety Awareness Comments Gait Comments educated on safety and slowing down. initially requiring CGA but able to complete with SBA after education. pls refer to mobility section for details. Stair Climbing Assessment Evaluation Level of Assist On Stairs Standby Assistance Devices Stair Climbing Assistive Devices Axillary Crutches,Left Railing Technique/Endurance Stair Climbing Direction Ascend and Descend Stair Climbing Technique Step to Step Number of Steps Climbed 3 Query Text: Stair Climbing Set # Repetitions (reps) 2 PT-Balance Assessment Sitting Balance and Reactions Static Sitting Balance Ability Normal Dynamic Sitting Balance Ability Normal Standing Balance and Reactions Static Standing Balance Ability Fair Dynamic Standing Balance Ability Fair Device Used using bilateral crutches M5 PT-IP Objective Assessments Start: 12/30/19 12:45 Freq: NEEDED Status: Active Protocol: Document 12/30/19 09:30 AB (Rec: 12/30/19 13:13 AB [id number]) Orientation Orientation/Cognition Level of Alertness Alert Orientation Name,Age,Birthday,Month,Date, Year,Day of Week,Place, Situation Language Function Ability No Deficits Noted Safety Awareness Decreased Safety Awareness Memory Description No Deficits Noted Gross Range of Motion Lower Extremity ROM Impairments R ankle on soft cast and not tested Strength Lower Extremity Strength Assessment Within Functional Limits Ankle R not tested Sensation Assessment Sensation Gross Sensation WNL Muscle Tone Muscle Tone WNL Yes M6 PT-IP Treatment Start: 12/30/19 12:45 Freq: NEEDED Status: Active Protocol: Document 12/30/19 09:30 AB (Rec: 12/30/19 13:13 AB [id number]) Physical Therapy Treatment Education Education Provided Precautions,Weight Bearing Status,Safety Equipment Issued Equipment Type and Company crutches: received order for crutches for pt. dispensed crutches from [email or web address]. pt signed papers. M7 PT-IP Assessment and Plan Start: 12/30/19 12:45 Freq: NEEDED Status: Active Protocol: Document 12/30/19 09:30 AB (Rec: 12/30/19 13:13 AB [id number]) PT Summary Assessment and Plan Potential Rehabilitation Potential Good Status of Condition at Evaluation Stable Summary Impairments Pain,ROM,Strength,Balance,Bed Mobility,Transfers,Gait, Activity Tolerance Assessment Summary pt requiring SBA to CGA with mobility using bilateral crutches. pt plans to go home today and with spouse to assist him as needed. pt may go home when medically stable. Goals Transfer Goal Independent,Crutches Gait Goal Independent,Crutches Gait Distance 250 Other Goals up/down 10 steps 1 rail / crutches mod I Days to Meet Goals 3 Frequency of Treatment Frequency Of Treatment Twice a Day Treatment Plan Physical Therapy Treatment Plan Bed Mobility Training,Transfer Training,Gait Training, Therapeutic Exercise,Balance Retraining,Post Op Education, Discharge Planning,Hot or Cold Pack,Neuromuscular Re-ed, Coordination Retraining,Manual Therapy Recommendations To Nursing Amount of Assist Needed Standby Assistance Discharge Recommendations PT Discharge Recommendations Home with Assistance, Outpatient PT Equipment Needed for Home Before crutches Discharge Transportation Needs at Discharge Private Vehicle
--- NOTE | 2019-12-30 11:00 | PC.NURSE ---
Patient has worked with physical therapy and he is ready to be discharged home. His will be coming down from [place] to pick him up. Patient has a soft cast to his r.foot and ankle that are both cdi. He had percolone earlier but is now complaining of more discomfort since walking on crutches with pt. CMS wnl and ppx2. He is sitting up in the chair with antibiotic going and will then heplock him.
[2019-12-30] MEDS: OXYCODONE IR 10 MG TABLET PO (11:07)
--- NOTE | 2020-01-04 18:38 | PC.NURSE ---
Late Entry; LR infusion initiated 12/28 at 17:24, per anesthesia order, stopped per transfer orders out of PACU. NS infusion initiated 12/28 at 16:17, stopped per transfer orders out of PACU. KCL infusion initiated at 14:38, complete at 18:39.
== END 2019-12-30 11:50 | disposition home or self-care (01) ==
LOC: ED 14:34 → AC 15:46
PROVIDERS: Admitting Provider Orthopaedic Surgery Foot and Ankle Surgery; Emergency Provider Nurse Practitioner Family; PCP Family Medicine; Visit Provider Orthopaedic Surgery Foot and Ankle Surgery
PROC: (CPT 28485; principal; 2019-12-29 18:00)
DX: S92.351B Displaced fracture of fifth metatarsal bone, right foot, initial encounter for open fracture (principal); S91.311A Laceration without foreign body, right foot, initial encounter; W01.118A Fall on same level from slipping, tripping and stumbling with subsequent striking against other sharp object, initial encounter; Y92.814 Boat as the place of occurrence of the external cause; Y99.0 Civilian activity done for income or pay; E87.6 Hypokalemia; Z11.59 Encounter for screening for other viral diseases
CPT/HCPCS: 12044; 28485; 36415; 36592; 73630; 80053; 85025; 87635; 90471; 96361; 96365; 96366; 96367; 96375; 96376; 97161; 99282; 99284; G0378; STOP; 90715; J0690; J1100; J1170; J2270; J2405; J2704; J3010; J3480